=== PATIENT | male | born 1990 | race Caucasian/White ===

== ENCOUNTER 2019-01-19 14:30 | Emergency (ER) | payer MEDICAID ==
[~2019-01-19] VITALS: Ht 175.3 cm; Wt 87.0 kg
[2019-01-19] MEDS ORDERED: SODIUM CHLORIDE 0.9% 1,000 ML IV ONE (15:02)
[2019-01-19] MEDS ORDERED: MORPHINE SULFATE 4 MG/ML CPJ (NOT FOR IM USE) IV STA (15:02)
[2019-01-19] MEDS ORDERED: ONDANSETRON HCL 4MG/2ML INJ IV STA (15:02)
[2019-01-19 15:49] LABS: CHLORIDE 104 mEq/L (98-107)
[2019-01-19 15:52] LABS: BASOPHILS % 0.5 % (0.0-2.0); HEMATOCRIT. 47.1 % (42.0-52.0); HEMOGLOBIN. 16.2 g/dL (14.0-18.0); LYMPHOCYTES % 28.3 % (20.0-50.0); MEAN CORPUSCULAR HEMOGLOBIN 34.3 pg (28.0-32.0); MEAN CORPUSCULAR VOLUME 99.8 fL (80.0-94.0); MEAN PLATELET VOLUME 8.1 fl (7.4-10.4); MONOCYTES % 7.4 % (2.0-8.0); NEUTROPHILS % 62.8 % (40.0-76.0); PLATELET 249 x1000/uL (130-400); RED BLOOD CELL COUNT 4.72 mill/uL (4.7-6.1); RED CELL DISTRIBUTION WIDTH 13.2 % (11.6-14.6)
[2019-01-19 18:59] LABS: CLARITY URINE CLEAR (CLEAR); COLOR URINE YELLOW (YELLOW); KETONES URINE NEGATIVE (NEGATIVE); LEUKOCYTE ESTERASE URINE NEGATIVE (NEGATIVE); NITRITE URINE NEGATIVE (NEGATIVE); OCCULT BLOOD URINE TRACE (NEGATIVE); PROTEIN URINE NEGATIVE (NEGATIVE); SPECIFIC GRAVITY URINE 1.017 (1.005-1.030); UROBILINOGEN URINE 0.2 E.U./dL (0.2-1.0)
[2019-01-19] MEDS ORDERED: CEFTRIAXONE 1 G PREMIX 50 ML IV ONE (19:30)
[2019-01-19] MEDS ORDERED: AZITHROMYCIN 500 MG TABLET PO ONE (19:30)
[2019-01-19 21:00] VITALS: BP 112/75
== END 2019-01-19 21:15 | disposition home or self-care (01) ==
LOC: ER 14:30
DX: R10.30 Lower abdominal pain, unspecified (principal); R11.10 Vomiting, unspecified; F12.10 Cannabis abuse, uncomplicated
CPT/HCPCS: 36415; 74176; 80053; 81003; 83690; 85025; 96361; 96365; 96375; 99284; J0696; J2270; J2405; J7030

== ENCOUNTER 2021-11-28 04:52 | Emergency (ER) | payer MEDICAID ==
[~2021-11-28] VITALS: Ht 180.3 cm; Wt 86.0 kg
[2021-11-28 05:20] VITALS: BP 114/77
[2021-11-28] MEDS ORDERED: SODIUM CHLORIDE 0.9% 1,000 ML IV ONE (06:00)
== END 2021-11-28 06:16 | disposition left against medical advice (07) ==
LOC: ER 04:52
DX: F41.0 Panic disorder [episodic paroxysmal anxiety] (principal); R09.81 Nasal congestion; F12.10 Cannabis abuse, uncomplicated
CPT/HCPCS: 99281; J7030; Z7610

== ENCOUNTER 2024-10-30 13:56 | Emergency (ER) | payer MEDICAID ==
[~2024-10-30] VITALS: Ht 172.7 cm; Wt 77.0 kg
[2024-10-30 14:05] VITALS: O2SAT 100
[2024-10-30] MEDS: KETOROLAC 30MG/ML VIAL IM ONE (15:01)
[2024-10-30] MEDS: ONDANSETRON HCL 4MG/2ML INJ IM ONE (15:01)
[2024-10-30 15:28] LABS: BASOPHILS % 0.5 % (0.0-2.0); DIFFERENTIAL COMMENT 0; HEMATOCRIT. 49.4 % (42.0-52.0); HEMOGLOBIN. 16.8 g/dL (14.0-18.0); LYMPHOCYTES % 10.1 % (20.0-50.0); MEAN CORPUSCULAR HEMOGLOBIN 34.5 pg (28.0-32.0); MEAN CORPUSCULAR VOLUME 101.4 fL (80.0-94.0); MEAN PLATELET VOLUME 8.4 fl (7.4-10.4); MONOCYTES % 8.7 % (2.0-8.0); NEUTROPHILS % 80.7 % (40.0-76.0); PLATELET 216 x1000/uL (130-400); RED BLOOD CELL COUNT 4.87 mill/uL (4.7-6.1); WHITE BLOOD COUNT 6.2 x1000/uL (4.5-11.0)
[2024-10-30 15:33] LABS: CHLORIDE 101 mEq/L (98-107); POTASSIUM 3.3 mEq/L (3.5-5.1); SODIUM 138 mEq/L (136-145)
[2024-10-30 15:34] LABS: CARBON DIOXIDE 23 mEq/L (21-32)
[2024-10-30 15:35] LABS: CALCIUM 10.1 mg/dL (8.7-10.4)
[2024-10-30 15:40] LABS: GLUCOSE 112 mg/dL (70-105); UREA NITROGEN BLOOD 13 mg/dL (9-23)
[2024-10-30 15:41] LABS: ALANINE AMINOTRANSFERASE 68 IU/L (10-49); ALBUMIN 5.1 g/dL (3.2-4.8); ASPARTATE AMINOTRANSFERASE 35 IU/L (<34)
[2024-10-30 15:42] LABS: BILIRUBIN DIRECT 0.2 mg/dL (<=3.0); BILIRUBIN TOTAL 0.7 mg/dL (0.1-1.0)
[2024-10-30 15:43] LABS: PROTEIN TOTAL 8.6 g/dL (6.0-8.3)
[2024-10-30 15:46] LABS: ETHANOL BLOOD < 10 mg/dL (<10)
[2024-10-30 15:50] LABS: INR 1.1; PROTHROMBIN TIME 11.3 sec (9.6-11.0)
[2024-10-30] MEDS ORDERED: ONDA-239 PO (16:04)
[2024-10-30 16:15] VITALS: BP 114/75; PULSE 84; RESP 20; TEMP 36.7; O2SAT 100
== END 2024-10-30 16:15 | disposition home or self-care (01) ==
LOC: ER 13:56
DX: R11.2 Nausea with vomiting, unspecified (principal); Z79.899 Other long term (current) drug therapy
CPT/HCPCS: 80076; 80048; 80320; 87430; 83690; 85025; 85610; 87070; 36415; 96372; 99284; J1885; J2405; G0480